=== PATIENT | male | born 1960 | race Caucasian/White ===

== ENCOUNTER 2023-10-15 21:49 | Emergency (ER) | payer SELFPAY ==
[~2023-10-15] VITALS: Ht 180.3 cm; Wt 100.0 kg
[2023-10-15 21:54] VITALS: BP 157/100; TEMP 97.5; O2SAT 99
[2023-10-15] MEDS: TETANUS, DIPHTHERIA, PERTUSSIS VAC/PF 0.5ML (>10YR OLD) IM ONE (22:30)
[2023-10-15] MEDS: SODIUM CHLORIDE 0.9% 1,000 ML IV ONE (22:53)
[2023-10-15] MEDS: BACITRACIN ZINC OINT UDPKT TOP ONE (22:57)
[2023-10-15] MEDS: LIDOCAINE HCL/EPINEPHRINE 1%-EPI 1:100,000 20 ML VIAL INFIL ONE (22:57)
[2023-10-15 23:09] LABS: BASOPHILS % 0.7 % (0.0-2.0); EOSINOPHILS % 1.8 % (0.0-5.0); HEMATOCRIT. 39.8 % (42.0-52.0); HEMOGLOBIN. 13.6 g/dL (14.0-18.0); LYMPHOCYTES % 19.8 % (20.0-50.0); MEAN CORPUSCULAR HEMOGLOBIN 31.6 pg (28.0-32.0); MEAN CORPUSCULAR VOLUME 92.8 fL (80.0-94.0); MEAN PLATELET VOLUME 8.2 fl (7.4-10.4); MONOCYTES % 6.1 % (2.0-8.0); NEUTROPHILS % 71.6 % (40.0-76.0); PLATELET 196 x1000/uL (130-400); RED BLOOD CELL COUNT 4.29 mill/uL (4.7-6.1); RED CELL DISTRIBUTION WIDTH 13.6 % (11.6-14.6); WHITE BLOOD COUNT 7.8 x1000/uL (4.5-11.0)
[2023-10-15 23:14] LABS: CHLORIDE 105 mEq/L (98-107); POTASSIUM 3.8 mEq/L (3.5-5.1); SODIUM 139 mEq/L (136-145)
[2023-10-15 23:15] LABS: CARBON DIOXIDE 26 mEq/L (21-32)
[2023-10-15 23:19] LABS: INR 1.1; PROTHROMBIN TIME 12.6 sec (9.6-11.0)
[2023-10-15 23:20] LABS: CREATININE 1.2 mg/dL (0.6-1.3); GLUCOSE 110 mg/dL (70-105); UREA NITROGEN BLOOD 15 mg/dL (9-23)
[2023-10-15 23:23] LABS: ETHANOL BLOOD < 10 mg/dL (<10)
[2023-10-15 23:30] VITALS: PULSE 90; RESP 16
[2023-10-15] MEDS: MORPHINE SULFATE 4 MG/ML INJ (FOR IV/IM USE) IV NR (23:30)
[2023-10-15] MEDS: ONDANSETRON HCL 4MG/2ML INJ IV NR (23:30)
[2023-10-16] MEDS ORDERED: IBUP-2028 MT (01:08)
== END 2023-10-16 02:59 | disposition home or self-care (01) ==
LOC: ER 21:49
DX: S01.81XA Laceration without foreign body of other part of head, initial encounter (principal); S50.12XA Contusion of left forearm, initial encounter; I10 Essential (primary) hypertension; F19.90 Other psychoactive substance use, unspecified, uncomplicated; F10.20 Alcohol dependence, uncomplicated; Y08.89XA Assault by other specified means, initial encounter; Y93.89 Activity, other specified; Y92.89 Other specified places as the place of occurrence of the external cause; Y99.8 Other external cause status; Z86.73 Personal history of transient ischemic attack (TIA), and cerebral infarction without residual deficits; Z98.890 Other specified postprocedural states; Y90.0 Blood alcohol level of less than 20 mg/100 ml
CPT/HCPCS: 80048; 80320; 85025; 85610; 36415; 71045; 73080; 73090; 70450; 70486; 72125; 90715; 12002; 90471; 96361; 96374; 96375; 99285; J3490; J7030; Z7610 ×5; J2270; A4565; G0480

== ENCOUNTER 2024-07-29 22:17 | Emergency (ER) | payer SELFPAY ==
[~2024-07-29] VITALS: Ht 177.8 cm; Wt 97.0 kg
[~2024-07-29 22:17] MED LIST: IBUP-2028 MT
[2024-07-29 22:37] VITALS: BP 166/88; PULSE 91; RESP 18; TEMP 36.7; O2SAT 99
[2024-07-29 23:01] LABS: BASOPHILS % 0.9 % (0.0-2.0); EOSINOPHILS % 1.9 % (0.0-5.0); HEMATOCRIT. 40.9 % (42.0-52.0); HEMOGLOBIN. 13.8 g/dL (14.0-18.0); LYMPHOCYTES % 25.4 % (20.0-50.0); MEAN CORPUSCULAR HEMOGLOBIN 30.9 pg (28.0-32.0); MEAN CORPUSCULAR HGB CONC 33.6 g/dL (31.0-37.0); MEAN CORPUSCULAR VOLUME 91.7 fL (80.0-94.0); MEAN PLATELET VOLUME 8.9 fl (7.4-10.4); MONOCYTES % 7.5 % (2.0-8.0); NEUTROPHILS % 64.3 % (40.0-76.0); PLATELET 163 x1000/uL (130-400); RED BLOOD CELL COUNT 4.46 mill/uL (4.7-6.1); RED CELL DISTRIBUTION WIDTH 13.1 % (11.6-14.6); WHITE BLOOD COUNT 5.3 x1000/uL (4.5-11.0)
[2024-07-29 23:11] LABS: CARBON DIOXIDE 28 mEq/L (21-32); CHLORIDE 104 mEq/L (98-107); POTASSIUM 3.9 mEq/L (3.5-5.1); SODIUM 141 mEq/L (136-145)
[2024-07-29 23:12] LABS: CALCIUM 9.7 mg/dL (8.7-10.4)
[2024-07-29 23:13] LABS: CLARITY URINE CLEAR (CLEAR); COLOR URINE DARK YELLOW (YELLOW); GLUCOSE URINE NEGATIVE (NEGATIVE); KETONES URINE NEGATIVE (NEGATIVE); LEUKOCYTE ESTERASE URINE 1+ (NEGATIVE); NITRITE URINE NEGATIVE (NEGATIVE); OCCULT BLOOD URINE TRACE (NEGATIVE); PROTEIN URINE 1+ (NEGATIVE); SPECIFIC GRAVITY URINE 1.029 (1.005-1.030)
[2024-07-29 23:17] LABS: ETHANOL BLOOD < 10 mg/dL (<10); GLUCOSE 128 mg/dL (70-105); UREA NITROGEN BLOOD 17 mg/dL (9-23)
[2024-07-29 23:18] LABS: ACETAMINOPHEN < 2 ug/mL (10-30); ALANINE AMINOTRANSFERASE 23 IU/L (10-49); AMMONIA < 17 uMol/L (<32); ASPARTATE AMINOTRANSFERASE 20 IU/L (<34)
[2024-07-29 23:19] LABS: BILIRUBIN DIRECT 0.2 mg/dL (<=3.0); BILIRUBIN TOTAL 0.6 mg/dL (0.1-1.0); CREATINE KINASE 103 IU/L (46-171); PROTEIN TOTAL 6.3 g/dL (6.0-8.3)
[2024-07-29 23:22] LABS: *AMPHETAMINES SCREEN URINE PRESUMPTIVE POSITIVE (NEGATIVE); *BARBITURATES SCREEN URINE NEGATIVE (NEGATIVE); *BENZODIAZEPINES SCREEN URINE NEGATIVE (NEGATIVE); *COCAINE SCREEN URINE NEGATIVE (NEGATIVE); CANNABINOID URINE SCREEN NEGATIVE (NEGATIVE); METHADONE URINE SCREEN NEGATIVE (NEGATIVE); OPIATES URINE SCREEN NEGATIVE (NEGATIVE); PHENCYCLIDINE URINE SCREEN NEGATIVE (NEGATIVE)
[2024-07-29 23:23] LABS: ECSTASY MDMA SCREEN URINE CONF.TEST INDICATED (NEGATIVE)
[2024-07-30 02:45] LABS: SQUAMOUS EPITHELIAL CELL URINE FEW /lpf (RARE/1+)
[2024-07-30 02:51] LABS: BACTERIA URINE NONE SEEN
== END 2024-07-30 00:43 | disposition left against medical advice (07) ==
LOC: ER 22:17
DX: F22 Delusional disorders (principal); F15.90 Other stimulant use, unspecified, uncomplicated; I10 Essential (primary) hypertension; F10.90 Alcohol use, unspecified, uncomplicated; Z86.73 Personal history of transient ischemic attack (TIA), and cerebral infarction without residual deficits; Y90.9 Presence of alcohol in blood, level not specified; Z79.899 Other long term (current) drug therapy
CPT/HCPCS: 36415; 80048; 80076; 80305; 80307; 80320; 80329; 81003; 82140; 82550; 85025; 99284; G0480

== ENCOUNTER 2024-08-03 22:50 | Emergency (ER) | payer BC, MEDICAID ==
[~2024-08-03] VITALS: Ht 182.9 cm; Wt 109.0 kg
[2024-08-03 22:54] VITALS: BP 130/79; PULSE 98; RESP 18; TEMP 36.6; O2SAT 99
[2024-08-04 00:29] LABS: BASOPHILS % 0.9 % (0.0-2.0); EOSINOPHILS % 2.2 % (0.0-5.0); HEMATOCRIT. 40.2 % (42.0-52.0); HEMOGLOBIN. 13.5 g/dL (14.0-18.0); LYMPHOCYTES % 26.5 % (20.0-50.0); MEAN CORPUSCULAR HEMOGLOBIN 30.9 pg (28.0-32.0); MEAN CORPUSCULAR HGB CONC 33.6 g/dL (31.0-37.0); MEAN CORPUSCULAR VOLUME 91.7 fL (80.0-94.0); MEAN PLATELET VOLUME 8.8 fl (7.4-10.4); MONOCYTES % 7.1 % (2.0-8.0); NEUTROPHILS % 63.3 % (40.0-76.0); PLATELET 164 x1000/uL (130-400); RED BLOOD CELL COUNT 4.38 mill/uL (4.7-6.1); RED CELL DISTRIBUTION WIDTH 13.4 % (11.6-14.6)
[2024-08-04 00:40] LABS: CHLORIDE 108 mEq/L (98-107); SODIUM 141 mEq/L (136-145)
[2024-08-04 00:41] LABS: CARBON DIOXIDE 27 mEq/L (21-32)
[2024-08-04 00:42] LABS: CALCIUM 9.6 mg/dL (8.7-10.4)
[2024-08-04 00:46] LABS: GLUCOSE 107 mg/dL (70-105); UREA NITROGEN BLOOD 23 mg/dL (9-23)
[2024-08-04] MEDS ORDERED: FURO-151 MT (01:41)
[2024-08-04] MEDS ORDERED: NAPR-1176 MT (01:41)
== END 2024-08-04 02:43 | disposition home or self-care (01) ==
LOC: ER 22:50
DX: R60.0 Localized edema (principal); F20.9 Schizophrenia, unspecified; E11.9 Type 2 diabetes mellitus without complications; I10 Essential (primary) hypertension; Z79.899 Other long term (current) drug therapy
CPT/HCPCS: 36415; 80048; 85025; 99283

== ENCOUNTER 2024-12-12 16:21 | Inpatient (IN) | payer MEDICARE, MEDICAID ==
[~2024-12-12] VITALS: Ht 182.9 cm; Wt 105.2 kg
[~2024-12-12 16:21] MED LIST changes: +FURO-151 MT; +NAPR-1176 MT
[2024-12-12 16:23] VITALS: O2SAT 94
[2024-12-12] MEDS: CEFTRIAXONE 2GM/50ML 50 ML IV ONE (17:00)
[2024-12-12] MEDS: VANCOMYCIN 2GM PMX (XELLIA) 400 ML IV SCH (18:32)
[2024-12-12 18:51] LABS: HEMATOCRIT. 40.0 % (42.0-52.0); HEMOGLOBIN. 13.8 g/dL (14.0-18.0); MEAN PLATELET VOLUME 8.7 fl (7.4-10.4); PLATELET 99 x1000/uL (130-400); RED BLOOD CELL COUNT 4.41 mill/uL (4.7-6.1); RED CELL DISTRIBUTION WIDTH 13.4 % (11.6-14.6)
[2024-12-12 19:03] LABS: INR 1.2
[2024-12-12 19:04] LABS: LYMPHOCYTES % MANUAL 7.0 % (20.0-50.0); MONOCYTES % MANUAL 3.0 % (2.0-8.0); NEUTROPHILS % MANUAL 90.0 % (45.0-75.0); PLATELET ESTIMATE SLIGHTLY DECREASED
[2024-12-12 19:07] LABS: CREATININE 1.2 mg/dL (0.6-1.3); UREA NITROGEN BLOOD 22 mg/dL (9-23)
[2024-12-12 19:09] LABS: ASPARTATE AMINOTRANSFERASE 41 IU/L (<34); BILIRUBIN DIRECT 0.4 mg/dL (<=3.0); BILIRUBIN TOTAL 1.0 mg/dL (0.1-1.0); PROTEIN TOTAL 5.9 g/dL (6.0-8.3)
[2024-12-12 19:15] LABS: TROPONIN I HIGH SENSITIVITY 55 ng/L (3.0-53)
[2024-12-12] MEDS: SODIUM CHLORIDE 0.9% 500 ML IV ONE (21:05)
[2024-12-12 23:00] VITALS: BP 156/89; PULSE 84; RESP 18; TEMP 36.6; O2SAT 96
[2024-12-13 01:45] VITALS: BP 156/89; PULSE 84; RESP 18; TEMP 36.5848
[2024-12-13] MEDS ORDERED: OXYCODONE HCL/ACETAMINOPHEN 5/325MG TABLET ONE (03:17)
[2024-12-13] MEDS ORDERED: OXYCODONE HCL/ACETAMINOPHEN 5/325MG TABLET PO PRN (03:45)
[2024-12-13 04:00] VITALS: BP 160/87; PULSE 91; RESP 20; TEMP 36.7; O2SAT 100
[2024-12-13] MEDS ORDERED: DEXTROSE 50% WATER 50ML SYRINGE IV PRN (06:30)
[2024-12-13] MEDS ORDERED: NALOXONE HCL 0.4MG/ML VIAL IV PRN (06:45)
[2024-12-13] MEDS: BLOOD SUGAR DIAGNOSTIC STRIP TEST SCH (07:08)
[2024-12-13] MEDS: VANCOMYCIN 750MG/150ML (BAXTER) IV SCH (07:24)
[2024-12-13] MEDS: PIPERACILLIN/TAZO 3.375G/50ML 50 ML IV SCH (07:25)
[2024-12-13] MEDS: INSULIN LISPRO 100 UNITS/ML SUBCUT SCH ×2 (07:56→11:51)
[2024-12-13 08:35] LABS: HEMATOCRIT. 42.6 % (42.0-52.0); HEMOGLOBIN. 14.8 g/dL (14.0-18.0); MEAN PLATELET VOLUME 8.9 fl (7.4-10.4); PLATELET 99 x1000/uL (130-400); RED BLOOD CELL COUNT 4.77 mill/uL (4.7-6.1); RED CELL DISTRIBUTION WIDTH 13.2 % (11.6-14.6)
[2024-12-13] MEDS: ENOXAPARIN 30MG/0.3ML SYR SUBCUT SCH (08:55)
[2024-12-13] MEDS ORDERED: ENOXAPARIN 40MG/0.4ML SYR SUBCUT SCH (09:00)
[2024-12-13 09:10] LABS: HEPATITIS C AB NON REACTIVE (Neg) (Negative)
[2024-12-13] MEDS ORDERED: CLONIDINE 0.1MG TABLET PO PRN (09:15)
[2024-12-13] MEDS ORDERED: IPRATROPIUM/ALBUTEROL 0.5-3(2.5)MG/3ML NEB HHN PRN (09:15)
[2024-12-13] MEDS ORDERED: ACETAMINOPHEN 325MG TABLET PO PRN (09:15)
[2024-12-13] MEDS ORDERED: DOCUSATE SODIUM 100MG CAPSULE PO PRN (09:15)
[2024-12-13] MEDS ORDERED: ONDANSETRON HCL 4MG/2ML INJ IV PRN (09:15)
[2024-12-13] MEDS: FUROSEMIDE 40MG/4ML VIAL IVP SCH (09:30)
[2024-12-13] MEDS: PANTOPRAZOLE SODIUM 40 MG/VIAL IV SCH (09:40)
[2024-12-13] MEDS: POTASSIUM CHLORIDE 20MEQ TABLET SR PO NR (09:40)
[2024-12-13] MEDS: METOPROLOL TARTRATE 25MG TABLET PO SCH (09:41)
[2024-12-13] MEDS: CEFTRIAXONE 1GM/50ML 50 ML IV SCH (11:42)
[2024-12-13] MEDS: ACETAMINOPHEN 325MG TABLET PO PRN (13:29)
[2024-12-13 15:24] LABS: BAND% 42.0 % (1.0-6.0); LYMPHOCYTES % MANUAL 4.0 % (20.0-50.0); MONOCYTES % MANUAL 5.0 % (2.0-8.0); NEUTROPHILS % MANUAL 49.0 % (45.0-75.0); PLATELET ESTIMATE SLIGHTLY DECREASED
[2024-12-13 17:19] LABS: CREATINE KINASE MB FRACTION 2.3 ng/mL (0.5-3.6); TROPONIN I HIGH SENSITIVITY 23.0 ng/L (3.0-53)
[2024-12-13 17:55] LABS: CLARITY URINE CLEAR (CLEAR); COLOR URINE YELLOW (YELLOW); GLUCOSE URINE NEGATIVE (NEGATIVE); KETONES URINE NEGATIVE (NEGATIVE); LEUKOCYTE ESTERASE URINE NEGATIVE (NEGATIVE); NITRITE URINE NEGATIVE (NEGATIVE); OCCULT BLOOD URINE NEGATIVE (NEGATIVE); PH URINE 6.5 (4.5-8.0); PROTEIN URINE 1+ (NEGATIVE); SPECIFIC GRAVITY URINE 1.019 (1.005-1.030); UROBILINOGEN URINE 1.0 E.U./dL (0.2-1.0)
[2024-12-13 18:07] LABS: RBC URINE NONE SEEN /hpf (0-2); SQUAMOUS EPITHELIAL CELL URINE RARE /lpf (RARE/1+); WBC URINE 0-2 /hpf (0-2)
[2024-12-13 18:08] LABS: BACTERIA URINE RARE
[2024-12-13 18:15] LABS: *AMPHETAMINES SCREEN URINE PRESUMPTIVE POSITIVE (NEGATIVE); *BARBITURATES SCREEN URINE NEGATIVE (NEGATIVE); *BENZODIAZEPINES SCREEN URINE NEGATIVE (NEGATIVE); *COCAINE SCREEN URINE NEGATIVE (NEGATIVE); CANNABINOID URINE SCREEN NEGATIVE (NEGATIVE); ECSTASY MDMA SCREEN URINE NEGATIVE (NEGATIVE); METHADONE URINE SCREEN NEGATIVE (NEGATIVE); OPIATES URINE SCREEN NEGATIVE (NEGATIVE); PHENCYCLIDINE URINE SCREEN NEGATIVE (NEGATIVE)
[2024-12-13 20:00] VITALS: BP 115/86; PULSE 61; RESP 18; TEMP 36.5; O2SAT 95
[2024-12-14] VITALS: BP 153/82; PULSE 68; RESP 18; TEMP 36.5; O2SAT 98
[2024-12-14] MEDS ORDERED: NALOXONE HCL 0.4MG/ML VIAL IV PRN (01:45)
[2024-12-14] MEDS: OXYCODONE HCL/ACETAMINOPHEN 5/325MG TABLET PO PRN (01:51)
[2024-12-14 04:00] VITALS: BP 150/76; PULSE 71; RESP 18; TEMP 36.5; O2SAT 99
[2024-12-14 08:00] VITALS: BP 122/70; PULSE 72; RESP 19; TEMP 36.8; O2SAT 97
[2024-12-14] MEDS: ASPIRIN 81MG TABLET PO SCH (10:16)
[2024-12-14] MEDS: VANCOMYCIN 750MG/150ML (BAXTER) IV SCH (20:42)
[2024-12-14 20:44] VITALS: BP 129/74; PULSE 82; RESP 20; TEMP 36.8; O2SAT 98
[2024-12-14] MEDS: FUROSEMIDE 40MG/4ML VIAL IVP SCH (20:51)
[2024-12-15 04:00] VITALS: BP 151/86; PULSE 71; RESP 20; TEMP 36.7; O2SAT 100
[2024-12-15 08:00] VITALS: BP 131/78; PULSE 65; RESP 19; TEMP 36.5; O2SAT 97
[2024-12-15 12:00] VITALS: BP 102/48; PULSE 95; RESP 20; TEMP 36.6; O2SAT 97
[2024-12-15 16:00] VITALS: BP 123/49; PULSE 65; RESP 20; TEMP 36.7; O2SAT 97
[2024-12-15 20:00] VITALS: BP 114/67; PULSE 82; RESP 17; TEMP 36.8; O2SAT 91
[2024-12-15 21:00] VITALS: PULSE 85
[2024-12-15] MEDS ORDERED: VANCOMYCIN 750MG PMX (XELLIA) 150 ML IV SCH (21:00)
== END 2024-12-15 21:26 | disposition left against medical advice (07) | DRG 871 ==
LOC: ER 16:21 → 8WST 20:20 → EDBEDREQ 21:04 → EDBEDREQTM 21:04 → ENRESERV 22:30
PROVIDERS: ADMIT Internal Medicine; ATTEND Internal Medicine
DX: A41.9 Sepsis, unspecified organism (principal); I21.4 Non-ST elevation (NSTEMI) myocardial infarction; L03.115 Cellulitis of right lower limb; E11.9 Type 2 diabetes mellitus without complications; F15.90 Other stimulant use, unspecified, uncomplicated; I11.0 Hypertensive heart disease with heart failure; I50.9 Heart failure, unspecified; F19.10 Other psychoactive substance abuse, uncomplicated
CPT/HCPCS: 36415; 71045; 73610; 80048; 80076; 80305; 81003; 82550; 82553; 82962; 83036; 83605; 83735; 83880; 84145; 84146; 84484; 85025; 86705; 87015; 87045; 87340; 87427; 87449; 87493; 89055; 93005; 93970; 97162; 97166; 97530; 99291; A4606; J0696; J1650; J1815; J1938; J2470; J2543; J3373; J7040